=== PATIENT | male | born 1990 | race Caucasian/White ===

== ENCOUNTER 2024-02-04 10:23 | Observation (INO) | payer SELFPAY ==
[2024-02-04] VITALS (7 sets, daily range): BP systolic 119–128; BP diastolic 55–81; PULSE 83–111; TEMP 97.4–98.2
[~2024-02-04] VITALS: Ht 175.3 cm; Wt 107.0 kg
[2024-02-04] MEDS ORDERED: NS 1,000 ML IV ONE ×2 (11:00→13:00)
[2024-02-04 11:21] LABS: BASO % 0.4 % (0.0-2.0); EOS # 0.1 K/mm3 (0.0-0.7); EOS % 1.2 % (0.0-4.0); GRAN # 8.2 K/mm3 (1.4-6.5); HEMATOCRIT 42.5 % (42.0-52.0); LYMPH % 17.4 % (20.0-51.0); MEAN CELL VOLUME 82 fl (80.0-100.0); MEAN CORPUSCULAR HEMOGLOBIN 29 pg (27-31); MEAN CORPUSCULAR HGB CONC 35 g/dl (33.0-37.0); MEAN PLATELET VOLUME 9.4 fl (7.4-10.4); MONO % 8.5 % (1.7-9.3); PLATELET COUNT 280 K/mm3 (130-400); RED BLOOD COUNT 5.16 M/mm3 (4.20-5.60); REDCELL DISTRIBUTION WIDTH-CV 12.4 % (11.5-14.5)
[2024-02-04 11:48] LABS: ALBUMIN 4.5 g/dL (3.5-5.0); BILIRUBIN,TOTAL 0.9 mg/dL (0.2-1.2); CALCIUM 9.6 mg/dL (8.4-10.2); CREATININE, serum 3.02 mg/dL (0.72-1.25); POTASSIUM 3.8 mEq/L (3.5-4.5); TOTAL PROTEIN 7.9 g/dl (6.2-8.1)
[2024-02-04] MEDS ORDERED: Iohexol 300 - 100 ML VIAL IV ONE (11:49)
[2024-02-04] MEDS ORDERED: NS 100 ML IV SCH (11:50)
[2024-02-04] MEDS ORDERED: PRINIVIL10 MG PO (13:12)
[2024-02-04] MEDS ORDERED: HCTZ12.5TAB PO (13:13)
[2024-02-04] MEDS ORDERED: SEROQUEL 1100 MG/TAB PO (13:13)
[2024-02-04] MEDS ORDERED: NEXIUM 40MG40 MG PO (13:13)
--- NOTE | 2024-02-04 15:03 | NUR ---
Patient arrived to the medical unit, alert and oriented x 4, Came by wheelchair. Assessment intake completed.
[2024-02-04] MEDS ORDERED: NS 1,000 ML IV SCH (15:15)
[2024-02-04] MEDS ORDERED: Acetaminophen 500 MG TAB PO PRN (15:15)
[2024-02-04] MEDS ORDERED: Ondansetron 4 MG/2 ML VIAL IV PRN (15:15)
[2024-02-04] MEDS ORDERED: Heparin 5,000 UNITS/ML 1 ML VIAL SQ SCH (16:00)
[2024-02-04 17:08] LABS: URINE APPEARANCE CLEAR (CLEAR/HAZY); URINE BLOOD TRACE (NEGATIVE); URINE COLOR YELLOW (YELLOW); URINE GLUCOSE NEGATIVE (NEGATIVE); URINE KETONE 1+ (NEGATIVE); URINE NITRATE NEGATIVE (NEGATIVE); URINE PROTEIN(semi-quant) TRACE (NEGATIVE)
[2024-02-04 17:34] LABS: COLLECTION METHOD CLEAN CATCH
[2024-02-04] MEDS ORDERED: QUEtiapine 100 MG TAB PO SCH (21:00)
--- NOTE | 2024-02-04 21:10 | NUR ---
Pateint resting in bed. Denies any pain at thsi time. Fresh water provided, denies any other needs. Patient had home medications in the room. Informed patient that he is unable to take any of his medications from home unless we do not have them and they have been ordered to take as a home med. Medications put in a bag with patient label and put in bin in med room. Assessment complete. IV in left AC infusing without complications. Call light and personal items in reach. Bed in low position.
[2024-02-05 00:18] VITALS: BP_SYST 123
[2024-02-05 03:24] VITALS: BP 108/66; PULSE 89; TEMP 97.5
[2024-02-05 04:33] VITALS: BP_SYST 108
--- NOTE | 2024-02-05 07:15 | NUR ---
PATIENT ASLEEP, RESTING IN BED. PATIENT AROUSES EASILY TO NAME. PATIENT DENIES ANY NEEDS OR COMPLAINTS AT THIS TIME. CALL LIGHT WITHIN REACH, IVF INFUSING.
[2024-02-05 07:51] VITALS: BP 119/77; PULSE 94; TEMP 97.6
[2024-02-05 07:56] LABS: CREATININE, serum 1.18 mg/dL (0.72-1.25); POTASSIUM 4.2 mEq/L (3.5-4.5)
[2024-02-05 09:16] VITALS: BP_SYST 119
[2024-02-05 09:43] LABS: BASO % 0.5 % (0.0-2.0); EOS # 0.2 K/mm3 (0.0-0.7); GRAN % 52.3 % (42.2-75.2); HEMATOCRIT 37.2 % (42.0-52.0); HEMOGLOBIN 13.2 g/dl (13.5-18.0); LYMPH # 1.9 K/mm3 (1.2-3.4); LYMPH % 33.5 % (20.0-51.0); MEAN CELL VOLUME 82 fl (80.0-100.0); MEAN CORPUSCULAR HEMOGLOBIN 29 pg (27-31); MEAN CORPUSCULAR HGB CONC 36 g/dl (33.0-37.0); MEAN PLATELET VOLUME 9.3 fl (7.4-10.4); MONO # 0.6 K/mm3 (0.1-0.6); MONO % 10.2 % (1.7-9.3); PLATELET COUNT 250 K/mm3 (130-400); RED BLOOD COUNT 4.56 M/mm3 (4.20-5.60); REDCELL DISTRIBUTION WIDTH-CV 12.5 % (11.5-14.5)
--- NOTE | 2024-02-05 11:05 | NUR ---
PATIENT IV REMOVED. PATIENT GIVEN DISCHARGE INSTRUCITONS AND EDUCAITON. PATIENT VOICES UNDERSTANDING OF TH EABOVE. PATIENT HOME MEDS RETURNED TO HIM. PATPER WORK SIGNED AND FILED TO CORRECT PLACE.
--- NOTE | 2024-02-05 11:06 | NUR ---
PATIENT TAKEN VIA WHEELCHAIR TO ER ENTRANCE WHERE HE LEFT IN STABLE CONDITION WITH HIS FATHER.
--- NOTE | 2024-02-05 15:50 | NUR ---
[employer] met with patient to discuss discharge planning and he is being discharged home today. Patient lives in [place], [place] with his , Tiki (ph#[phone]) and sees CARLOS Mosquera at [facility] for primary care. 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 Patient stated his insurance coverage will start in March. Patient gets his medications from [facility] and does not use any DME. Patient stated he is supposed to use a CPAP, but doesn't. Patient is independent with [employer]. Patient does not have DPOA-HC and is not interested in completing one at this time. Discharge Plan; Home
== END 2024-02-05 11:41 | disposition home or self-care (01) ==
LOC: COL.ER 10:23 → MEDICAL 13:04
PROVIDERS: Physician Assistant; ADMIT Internal Medicine
DX: N17.9 Acute kidney failure, unspecified (principal); K92.1 Melena; R11.10 Vomiting, unspecified; K76.0 Fatty (change of) liver, not elsewhere classified; K21.9 Gastro-esophageal reflux disease without esophagitis; I10 Essential (primary) hypertension; G80.9 Cerebral palsy, unspecified; F31.9 Bipolar disorder, unspecified; D72.829 Elevated white blood cell count, unspecified; E87.20 Acidosis, unspecified; G91.9 Hydrocephalus, unspecified; F17.220 Nicotine dependence, chewing tobacco, uncomplicated; Z98.2 Presence of cerebrospinal fluid drainage device; Z79.899 Other long term (current) drug therapy
CPT/HCPCS: G0378; J1644; J7030; Q9967